=== PATIENT | male | born 1990 | race Asian ===

== ENCOUNTER 2017-01-02 06:54 | Emergency (ER) | payer MEDICAID ==
[~2017-01-02] VITALS: Ht 172.7 cm; Wt 72.7 kg
[2017-01-02] MEDS ORDERED: SODIUM CHLORIDE 0.9% 1,000 ML IV ONE (07:30)
[2017-01-02 07:47] LABS: APPEARANCE,URINE CLEAR (CLEAR); GLUCOSE, URINE (UA) NEGATIVE (NEGATIVE); KETONES,URINE NEGATIVE (NEGATIVE); LEUKOCYTE ESTERASE ,URINE NEGATIVE (NEGATIVE); OCCULT BLOOD,URINE NEGATIVE (NEGATIVE); PROTEIN,URINE NEGATIVE (NEGATIVE)
[2017-01-02 07:48] LABS: RBC,URINE None Seen /HPF (0-2); WBC,URINE None Seen /HPF (0-5)
[2017-01-02 07:58] LABS: BASOPHILS % (AUTO) 0.5 % (0.0-2.0); HEMATOCRIT 46.4 % (41-53); LYMPHOCYTES % (AUTO) 38.8 % (22.0-44.0); MEAN CORPUSCULAR HEMOGLOBIN 30.3 pg (26.0-34.0); MEAN CORPUSCULAR HGB CONC 34.6 G/dL (31.0-37.0); MEAN CORPUSCULAR VOLUME 88 fL (80-100); MONOCYTES # (AUTO) 0.7 K/uL (0.1-1.0); MONOCYTES % (AUTO) 9.2 % (2.0-9.0); NEUTROPHILS # (AUTO) 3.9 K/uL (1.8-7.7); NEUTROPHILS % (AUTO) 49.5 % (40.0-70.0); PLATELET COUNT (AUTO) 296 K/uL (150-450); RED BLOOD CELL COUNT(AUTO) 5.28 MIL/uL (4.50-5.90); RED CELL DISTRIBUTION WIDTH 12.9 % (11.5-14.5); WHITE BLOOD COUNT (AUTO) 7.8 K/uL (4.5-11.0)
[2017-01-02 08:11] LABS: ANION GAP 14 mmol/L (8-16); CALCIUM, TOTAL 9.4 mg/dL (8.8-10.5); CARBON DIOXIDE 25 mmol/L (22-29); CHLORIDE 104 mmol/L (98-107); CREATININE 1.08 mg/dL (0.60-1.30); GLOMERULAR FILTR. RATE CALC > 60 mL/min (>60); POTASSIUM 4.3 mmol/L (3.5-5.1); SODIUM SERUM 143 mmol/L (136-145); UREA NITROGEN, BLOOD 10 mg/dL (7-18)
[2017-01-02] MEDS ORDERED: SODIUM CHLORIDE 0.9% 100 ML ONE (08:13)
[2017-01-02] MEDS ORDERED: IOVERSOL 350 MG/ML 100 ML VIAL ONE (08:13)
[2017-01-02 08:36] LABS: ALANINE AMINOTRANSFERASE 105 U/L (12-78); ALBUMIN 4.3 g/dL (3.4-5.0); ASPARTATE AMINOTRANSFERASE 49 U/L (15-37); BILIRUBIN,TOTAL 0.4 mg/dL (0.1-1.0); CREATINE KINASE MB 1.7 ng/mL (0-5); CREATINE KINASE, TOTAL 271 U/L (39-308)
[2017-01-02 09:54] VITALS: BP 127/94
== END 2017-01-02 09:56 | disposition home or self-care (01) ==
LOC: EMS 06:56
DX: S29.9XXA Unspecified injury of thorax, initial encounter (principal); F10.129 Alcohol abuse with intoxication, unspecified; R10.12 Left upper quadrant pain; F17.210 Nicotine dependence, cigarettes, uncomplicated; Z88.0 Allergy status to penicillin; X58.XXXA Exposure to other specified factors, initial encounter; Y93.89 Activity, other specified; Y92.89 Other specified places as the place of occurrence of the external cause; Y99.8 Other external cause status; Y90.6 Blood alcohol level of 120-199 mg/100 ml
CPT/HCPCS: 36415; 71020; 74177; 80053; 80307; 81001; 82550; 82553; 83690; 84484; 85025; 93005; 93041; 96360; 99285; G0480; J7030; J7050; Q9967